=== PATIENT | male | born 1995 | race Hispanic/Latino ===

== ENCOUNTER 2017-09-26 14:41 | Emergency (ER) | payer OTHER, SELFPAY ==
[2017-09-26] MEDS ORDERED: Ibuprofen 800 MG TAB ONE (15:12)
[2017-09-26] MEDS ORDERED: Adacel (T-DAP) 0.5 ML VIAL ONE (15:15)
== END 2017-09-26 15:37 | disposition home or self-care (01) ==
LOC: NAV ERS 14:41
DX: S01.01XA Laceration without foreign body of scalp, initial encounter (principal); W22.8XXA Striking against or struck by other objects, initial encounter
CPT/HCPCS: 12001; 90471; 90715

== ENCOUNTER 2017-10-03 12:41 | Emergency (ER) | payer OTHER, SELFPAY ==
[2017-10-03] MEDS ORDERED: Bacitracin Zinc 1 Packet ONE (12:56)
== END 2017-10-03 13:00 | disposition home or self-care (01) ==
LOC: NAV ERS 12:41
DX: S01.01XD Laceration without foreign body of scalp, subsequent encounter (principal)